=== PATIENT | male | born 1950 | race Caucasian/White ===

== ENCOUNTER 2016-08-05 22:09 | Emergency (ER) | payer MEDICARE, OTHER ==
[2016-08-05 23:12] LABS: BASOPHIL 0.5 % (0-2); EOSINOPHIL 2.3 % (0-7); HCT 44.4 % (42.0-52.0); HGB 15.1 g/dl (13.2-18.0); LYMPHOCYTE 32.3 % (15-48); MCV 88.1 fL (78.0-100.0); MONOCYTE 11.5 % (0-12); MPV 9.7 fL (6.0-9.5); NEUTROPHIL 53.4 % (41-80); PLT 254 K/uL (150-400); RBC 5.04 M/uL (4.70-6.00); RDW 13.8 % (11.5-14.0); WBC 7.3 K/uL (4.0-10.5)
[2016-08-05 23:28] LABS: ALBUMIN 4.7 g/dL (3.4-4.8); BILIRUBIN - TOTAL 0.3 mg/dL (0.1-1.0); CREATININE 1.4 mg/dL (0.7-1.2); GLOBULIN (CALCULATION) 2.7 g/dL (2.2-4.2); POTASSIUM 3.7 mmol/L (3.5-5.1); TOTAL PROTEIN 7.4 g/dL (6.4-8.3)
[2016-08-05 23:31] LABS: BILIRUBIN NEGATIVE (NEGATIVE); BLOOD TRACE-INTACT Ery/uL (NEGATIVE); CLARITY CLEAR (CLEAR); COLOR COLORLESS (YELLOW); GLUCOSE (U) NORMAL (NORMAL); KETONE (U) NEGATIVE (NEGATIVE); LEUKOCYTES NEGATIVE Leu/uL (NEGATIVE); NITRITE NEGATIVE (NEGATIVE); PROTEIN NEGATIVE (NEGATIVE); SPECIFIC GRAVITY <=1.005 (1.001-1.030); UROBILINOGEN 0.2 mg/dL (0.2-1.0)
[2016-08-05 23:37] LABS: BACTERIA TRACE; MUCOUS TRACE
[2016-08-05 23:44] LABS: BENZODIAZEPINES NEGATIVE (NEGATIVE)
[2016-08-05 23:45] LABS: AMPHETAMINES NEGATIVE (NEGATIVE); BARBITURATES NEGATIVE (NEGATIVE); COCAINE NEGATIVE (NEGATIVE); MARIJUANA (THC) NEGATIVE (NEGATIVE); METHADONE NEGATIVE (NEGATIVE); TRICYCLIC ANTIDEPRESSANT NEGATIVE (NEGATIVE)
[2016-08-06 00:39] LABS: MAGNESIUM 2.19 mg/dL (1.40-2.10); PHOSPHORUS 3.8 mg/dL (2.7-4.5)
== END 2016-08-06 01:08 | disposition home or self-care (01) ==
LOC: FER 22:09
PROVIDERS: Emergency Medicine
DX: F10.129 Alcohol abuse with intoxication, unspecified (principal); I10 Essential (primary) hypertension; E11.9 Type 2 diabetes mellitus without complications; Z88.1 Allergy status to other antibiotic agents; Z79.82 Long term (current) use of aspirin; Z79.899 Other long term (current) drug therapy; Z95.1 Presence of aortocoronary bypass graft; Y90.5 Blood alcohol level of 100-119 mg/100 ml
CPT/HCPCS: 36415; 70450; 71020; 80053; 80305; 81001; 83735; 84100; 84484; 85025; 93005; G0480